=== PATIENT | male | born 1980 | race Caucasian/White ===

== ENCOUNTER 2025-07-11 19:32 | Emergency (ER) | payer OTHER ==
[~2025-07-11] VITALS: Ht 177.8 cm; Wt 97.7 kg
[~2025-07-11 19:32] MED LIST: AMLO-257 PO; LEVE-71 PO
[2025-07-11] MEDS: HYDROCODONE/ACETAMINOPHEN 10-325 MG TABLET PO ONE (22:59)
[2025-07-12] MEDS: KETOROLAC TROMETHAMINE 60 MG/2 ML VIAL IM ONE (02:01)
[2025-07-12 05:04] VITALS: BP 132/74; PULSE 88; RESP 18; TEMP 97.3; O2SAT 98
== END 2025-07-12 06:00 | disposition home or self-care (01) ==
LOC: EMS 19:32
DX: S00.83XA Contusion of other part of head, initial encounter (principal); R07.89 Other chest pain; Z79.899 Other long term (current) drug therapy; Y04.0XXA Assault by unarmed brawl or fight, initial encounter; Y93.89 Activity, other specified; Y92.89 Other specified places as the place of occurrence of the external cause; Y99.8 Other external cause status
CPT/HCPCS: 99285; 70450; 70486; 71250; 73080; 73110; 96372; J1885